=== PATIENT | male | born 1960 | race Caucasian/White ===

== ENCOUNTER 2016-12-29 07:07 | Day surgery (SDC) | payer BC ==
[~2016-12-29] VITALS: Ht 172.7 cm; Wt 79.0 kg
[2016-12-29] VITALS (8 sets, daily range): BP systolic 91–120; BP diastolic 63–89; PULSE 69–84; TEMP 97.2–98.2
[2016-12-29] MEDS ORDERED: CORDARONE200 MG/TAB PO (07:34)
[2016-12-29] MEDS ORDERED: LOPRESSOR 225 MG/TAB PO (07:35)
[2016-12-29] MEDS ORDERED: ELIQUIS 5MG PO (07:35)
[2016-12-29] MEDS ORDERED: SYNTHROID0.075 MG/T PO (07:35)
[2016-12-29] MEDS ORDERED: ASPIRIN E.C. 8181 MG PO (07:36)
[2016-12-29 07:59] LABS: HEMATOCRIT 50.4 % (42.0-52.0); HEMOGLOBIN 16.6 g/dl (13.5-18.0); MEAN CELL VOLUME 90 fl (80.0-100.0); MEAN CORPUSCULAR HEMOGLOBIN 30 pg (27.0-31.0); MEAN CORPUSCULAR HGB CONC 33 g/dl (33.0-37.0); PLATELET COUNT 227 K/mm3 (130-400); REDCELL DISTRIBUTION WIDTH-CV 13.6 % (11.5-14.5); WHITE BLOOD COUNT 10.3 K/mm3 (4.8-10.8)
[2016-12-29 08:07] LABS: CALCIUM 9.5 mg/dL (8.4-10.2); CREATININE, serum 1.08 mg/dL (0.66-1.25); POTASSIUM 4.1 mmol/L (3.4-5.0)
[2016-12-29 08:48] LABS: INR 1.3 (0.8-3.0); PROTHROMBIN TIME 14.2 SECONDS (9.7-12.8)
== END 2016-12-29 10:03 | disposition home or self-care (01) ==
LOC: COL.RAD 07:07
PROVIDERS: Internal Medicine Cardiovascular Disease
DX: I48.92 Unspecified atrial flutter (principal); Z95.0 Presence of cardiac pacemaker; F17.210 Nicotine dependence, cigarettes, uncomplicated
CPT/HCPCS: J2250; J2704; J7030

== ENCOUNTER → 2019-01-25 | Outpatient (REF) ==
[~2019-01-25] MED LIST: ASPIRIN E.C. 8181 MG PO; CORDARONE200 MG/TAB PO; ELIQUIS 5MG PO; LOPRESSOR 225 MG/TAB PO; SYNTHROID0.075 MG/T PO
== END ==
LOC: ZLAB.WCH 14:29
DX: Z01.89 Encounter for other specified special examinations (principal)

== ENCOUNTER 2022-04-03 06:48 | Outpatient (CLI) | payer MEDICARE, MEDICAID ==
[2022-04-03] VITALS (13 sets, daily range): BP systolic 103–115; BP diastolic 64–82; PULSE 59–75; TEMP 97.6
[~2022-04-03] VITALS: Ht 172.7 cm; Wt 75.0 kg
[~2022-04-03 06:48] MED LIST changes: +AZULFIDINE500 MG/TAB PO; +CARAFATE 1GM1 G PO; +COREG 6.256.25 MG/TA PO; +LIPITOR20 MG PO; +PROTONIX 40MG T40 MG PO; +TYLENOL 325MG325 MG PO
--- NOTE | 2022-04-03 08:10 | NUR ---
pt on CT table Dr Silva in room, procedure started
--- NOTE | 2022-04-03 08:20 | NUR ---
biopsy tissue gotten and put in formulin
--- NOTE | 2022-04-03 11:00 | NUR ---
Pt has revieved post lung biopsy chest xray and has been cleared for discharge by Dr. Cervantes. Pt has done well with no sob, inspiratory pain etc. I reviewed discharge instructions with pt and his brother, both verbalized understanding. to exit via wheelchair,.
== END 2022-04-03 20:49 | disposition home or self-care (01) ==
LOC: COL.RAD 06:48
DX: R91.8 Other nonspecific abnormal finding of lung field (principal)
CPT/HCPCS: 32109

== ENCOUNTER 2022-04-08 06:27 | Emergency (ER) | payer MEDICARE, MEDICAID ==
[~2022-04-08] VITALS: Ht 172.7 cm; Wt 75.0 kg
[2022-04-08 08:34] LABS: INR 1.3 (0.8-3.0); PARTIAL THROMBOPLASTIN TIME 33.9 SECONDS (26.0-37.0); PROTHROMBIN TIME 14.7 SECONDS (9.7-12.8)
[2022-04-08 08:51] LABS: BASO # 0.1 K/mm3 (0.0-0.2); BASO % 0.8 % (0.0-2.0); EOS # 0.1 K/mm3 (0.0-0.7); EOS % 0.9 % (0.0-4.0); GRAN # 6.8 K/mm3 (1.4-6.5); GRAN % 68.9 % (42.2-75.2); HEMOGLOBIN 15.9 g/dl (13.5-18.0); LYMPH # 1.8 K/mm3 (1.2-3.4); LYMPH % 18.4 % (20.0-51.0); MEAN CELL VOLUME 93 fl (80.0-100.0); MEAN CORPUSCULAR HEMOGLOBIN 31 pg (27-31); MEAN CORPUSCULAR HGB CONC 33 g/dl (33.0-37.0); MEAN PLATELET VOLUME 10.8 fl (7.4-10.4); MONO % 10.3 % (1.7-9.3); PLATELET COUNT 169 K/mm3 (130-400); RED BLOOD COUNT 5.15 M/mm3 (4.20-5.60); REDCELL DISTRIBUTION WIDTH-CV 16.7 % (11.5-14.5)
[2022-04-08 09:31] LABS: ALBUMIN 3.7 gm/dL (3.5-5.0); CALCIUM 9.4 mg/dL (8.4-10.2); CREATININE, serum 0.8 mg/dL (0.72-1.25); POTASSIUM 4.1 mmol/L (3.5-4.5); TOTAL PROTEIN 7.3 gm/dL (6.2-8.1)
[2022-04-08 10:32] LABS: TROPONIN-I 0.118 ng/mL (0.00-0.033)
[2022-04-08 11:54] VITALS: BP 125/83; PULSE 68; TEMP 98.3
== END 2022-04-08 11:54 | disposition home or self-care (01) ==
LOC: COL.ER 06:27
PROVIDERS: Emergency Medicine
DX: R53.81 Other malaise (principal); I25.9 Chronic ischemic heart disease, unspecified; F17.290 Nicotine dependence, other tobacco product, uncomplicated; Z95.0 Presence of cardiac pacemaker; Z28.310 Unvaccinated for COVID-19

== ENCOUNTER 2022-04-23 09:42 | Day surgery (SDC) | payer MEDICARE, MEDICAID ==
[2022-04-23] VITALS (9 sets, daily range): BP systolic 102–141; BP diastolic 78–95; PULSE 61–96; TEMP 97.6
[~2022-04-23] VITALS: Ht 172.8 cm; Wt 75.5 kg
[~2022-04-23 09:42] MED LIST changes: -SYNTHROID0.075 MG/T PO; +SYNTHROID0.1 MG/TAB PO
[2022-04-23] MEDS ORDERED: ELIQUIS 5MG PO (10:14)
[2022-04-23] MEDS ORDERED: FLONASEALLERGY NS (10:15)
[2022-04-23] MEDS ORDERED: LEVAQUIN 5500 MG/TA1 PO (10:16)
[2022-04-23 10:49] LABS: HEMATOCRIT 47.1 % (42.0-52.0); HEMOGLOBIN 15.6 g/dl (13.5-18.0); MEAN CELL VOLUME 93 fl (80.0-100.0); MEAN CORPUSCULAR HEMOGLOBIN 31 pg (27-31); MEAN CORPUSCULAR HGB CONC 33 g/dl (33.0-37.0); MEAN PLATELET VOLUME 9.9 fl (7.4-10.4); PLATELET COUNT 183 K/mm3 (130-400); RED BLOOD COUNT 5.06 M/mm3 (4.20-5.60); REDCELL DISTRIBUTION WIDTH-CV 16.8 % (11.5-14.5)
[2022-04-23 10:58] LABS: INR 2.1 (0.8-3.0); PROTHROMBIN TIME 24.3 SECONDS (9.7-12.8)
[2022-04-23 11:00] LABS: PARTIAL THROMBOPLASTIN TIME 40.9 SECONDS (26.0-37.0)
[2022-04-23 11:09] LABS: CALCIUM 9.2 mg/dL (8.4-10.2); CREATININE, serum 0.77 mg/dL (0.72-1.25)
[2022-04-23 11:31] LABS: THYROID STIMULATING HORMONE 2.807 uIU/mL (0.350-4.940)
[2022-04-23] MEDS ORDERED: PACERONE400 MG PO (14:01)
--- NOTE | 2022-04-23 14:50 | NUR ---
Pt has rested comfortably in bed following procedures. He has tolerated PO fluids without issue. He has denied desire for food while awaiting DC paperwork. He is steady on feet around room. DC instructions and new medication reviewed with pt, he expresses understanding. IV DC'd, site wrapped with coban. He refuses wheelchair, and ambulates out of dept. This nurse escorts him out to brother's car with belongings.
== END 2022-04-23 14:46 | disposition home or self-care (01) ==
LOC: COL.CAR 09:42
PROVIDERS: Internal Medicine Cardiovascular Disease
DX: I48.0 Paroxysmal atrial fibrillation (principal); I08.1 Rheumatic disorders of both mitral and tricuspid valves; Z86.16 Personal history of COVID-19; Z87.891 Personal history of nicotine dependence; E78.2 Mixed hyperlipidemia
CPT/HCPCS: J0282; J2704; J7060

== ENCOUNTER 2022-05-16 10:29 | Emergency (ER) | payer MEDICARE, MEDICAID ==
[~2022-05-16] VITALS: Ht 172.7 cm; Wt 72.7 kg
[~2022-05-16 10:29] MED LIST changes: +FLONASEALLERGY NS; +LEVAQUIN 5500 MG/TA1 PO; +PACERONE400 MG PO
[2022-05-16 10:35] VITALS: TEMP 97.5
[2022-05-16 11:20] LABS: BASO % 0.2 % (0.0-2.0); EOS % 0.1 % (0.0-4.0); GRAN % 86.4 % (42.2-75.2); HEMATOCRIT 46.5 % (42.0-52.0); HEMOGLOBIN 15.9 g/dl (13.5-18.0); LYMPH # 0.9 K/mm3 (1.2-3.4); LYMPH % 4.9 % (20.0-51.0); MEAN CELL VOLUME 92 fl (80.0-100.0); MEAN CORPUSCULAR HEMOGLOBIN 32 pg (27-31); MEAN CORPUSCULAR HGB CONC 34 g/dl (33.0-37.0); MEAN PLATELET VOLUME 10.8 fl (7.4-10.4); MONO # 1.3 K/mm3 (0.1-0.6); MONO % 7.2 % (1.7-9.3); PLATELET COUNT 229 K/mm3 (130-400); RED BLOOD COUNT 5.04 M/mm3 (4.20-5.60); REDCELL DISTRIBUTION WIDTH-CV 14.9 % (11.5-14.5)
[2022-05-16 12:17] LABS: ALBUMIN 3.4 gm/dL (3.5-5.0); BILIRUBIN,TOTAL 0.7 mg/dL (0.2-1.2); CALCIUM 9.4 mg/dL (8.4-10.2); CREATININE, serum 0.71 mg/dL (0.72-1.25); POTASSIUM 4.2 mmol/L (3.5-4.5)
[2022-05-16 14:51] VITALS: BP 136/96; PULSE 70
== END 2022-05-16 14:51 | disposition home or self-care (01) ==
LOC: COL.ER 10:29
PROVIDERS: Emergency Medicine; Nurse Practitioner
DX: K59.00 Constipation, unspecified (principal); F17.210 Nicotine dependence, cigarettes, uncomplicated; Z28.310 Unvaccinated for COVID-19
CPT/HCPCS: Q9967